=== PATIENT | female | born 1930 | race Caucasian/White ===

== ENCOUNTER 2016-10-11 16:49 | Emergency (ER) | payer OTHER ==
[~2016-10-11] VITALS: Ht 154.9 cm; Wt 50.8 kg
[~2016-10-11 16:49] MED LIST: ATEN100T OR; CALC-190 OR; GEMF600T3 OR
[2016-10-11 17:23] VITALS: BP 117/65
== END 2016-10-11 17:51 | disposition home or self-care (01) ==
LOC: ER 16:49 → EDUNIT# 16:49 → ER 17:51
DX: J20.9 Acute bronchitis, unspecified (principal)

== ENCOUNTER 2017-01-23 14:20 | Inpatient (IN) | payer OTHER ==
[~2017-01-23] VITALS: Ht 152.4 cm; Wt 51.0 kg
[2017-01-23 15:12] LABS: Basophils # (auto) 0 uL; Basophils % (auto) 0.3 % (0.0-2.0); CONDITION Y; Eosinophils # (auto) 0.1 uL; Eosinophils % (auto) 0.7 % (0.0-7.0); Hematocrit 35.4 % (36.0-46.0); Hemoglobin 11.9 g/dL (12.2-16.2); Lymphocytes # (auto) 0.9 uL; Lymphocytes % (auto) 11.3 % (10.0-50.0); Mean Corpuscular Hemoglobin 32.6 pg (28.0-32.0); Mean Corpuscular Hgb Conc. 33.6 g/dL (32.0-36.0); Mean Corpuscular Volume 96.9 fL (80.0-100.0); Mean Platelet Volume 7.7 fL (7.4-10.4); Monocytes # (auto) 0.5 uL; Monocytes % (auto) 6.7 % (0.0-12.0); Neutrophils # (auto) 6.7 uL; Platelet Count (auto) 303 10^3/uL (140-450); Red Cell Distribution Width 14.1 % (11.6-16.0); White Blood Cell 8.2 10^3/uL (4.4-10.8)
[2017-01-23 15:29] LABS: Albumin 3.8 g/dL (3.4-5.0); BUN/Creatinine Ratio 29.6; Calcium 9.5 mg/dL (8.5-10.1); Magnesium 2.7 mg/dL (1.6-2.6)
[2017-01-23 15:45] LABS: Bilirubin, Total 0.4 mg/dL (0.2-1.0); Total Protein 7.9 g/dL (6.4-8.2)
[2017-01-23] MEDS ORDERED: SODIUM CHLORIDE 0.9% 1,000 ML IVB ONE (18:12)
[2017-01-23 19:03] LABS: INR 0.99 (0.9-1.15); Partial Thromboplastin Time 26.1 sec (22.64-33.71); Prothrombin Time 10.8 sec (9.37-12.3)
[2017-01-23] MEDS ORDERED: MORPHINE SULF INJ 2 MG/ML SYRINGE 1ML IV PRN (19:45)
[2017-01-23] MEDS ORDERED: NITROGLYCERIN 0.4 MG SL TAB SL PRN (19:45)
[2017-01-23] MEDS ORDERED: LACTULOSE 20Gm/30ML SOLN PO PRN (19:45)
[2017-01-23] MEDS ORDERED: LORazepam 0.5 MG TAB PO PRN (19:45)
[2017-01-23] MEDS ORDERED: PROMETHAZINE HCL 25 MG/ML 1ML IV PRN (19:45)
[2017-01-23] MEDS ORDERED: ACETAMINOPHEN 500 MG TAB PO PRN (19:45)
[2017-01-23] MEDS ORDERED: MORPHINE SULFATE 4 MG/ML SYRG IV PRN (19:45)
[2017-01-23] MEDS ORDERED: HYDROcodone-ACET 5/325MG TAB PO PRN (19:45)
[2017-01-23] MEDS ORDERED: TEMAZEPAM 15 MG CAP PO PRN (19:45)
[2017-01-23] MEDS ORDERED: ASPirin 81 mg TAB PO ONE (20:00)
[2017-01-23] MEDS: ENOXAPARIN SOD 30 MG/0.3 ML SYRINGE SC SCH (20:08)
[2017-01-23] MEDS: SODIUM CHLORIDE 0.9% 1,000 ML IV SCH (20:10)
[2017-01-23 21:30] VITALS: BP 148/61
[2017-01-23] MEDS: ATORVASTATIN 20 MG TAB PO SCH ×2 (22:00→22:13)
[2017-01-24 01:42] VITALS: BP 148/67
[2017-01-24 02:51] LABS: Urine Bilirubin Negative (Negative); Urine Blood Negative /uL (Negative); Urine Color Yellow (Yellow); Urine Glucose Normal (Normal); Urine Ketone Negative (Negative); Urine Nitrite Negative (Negative); Urine RBC 2 /hpf (0 - 4); Urine Squamous Epithelial Cell FEW /hpf (<5); Urine Urobilinogen Normal (Negative); Urine pH 5.5 (5.0-8.0)
[2017-01-24 05:26] VITALS: BP 144/70
[2017-01-24 06:37] LABS: Potassium 3.4 mmol/L (3.5-5.1)
[2017-01-24 06:50] LABS: Bilirubin, Total 0.4 mg/dL (0.2-1.0); Calcium 8.6 mg/dL (8.5-10.1); Total Protein 6.2 g/dL (6.4-8.2)
[2017-01-24] MEDS: SODIUM CHLORIDE 0.9% 1,000 ML IV SCH ×2 (08:27→20:41)
[2017-01-24 09:27] VITALS: BP 152/80
[2017-01-24] MEDS ORDERED: POTASSIUM CHL 10 Meq TABLET PO ONE (09:30)
[2017-01-24] MEDS: ASPirin 81 mg TAB PO SCH (10:16)
[2017-01-24 11:02] LABS: Temperature: 23.3 C (20.0-25.0)
[2017-01-24] MEDS: BOOST PLUS 8 ounce PO SCH ×2 (11:07→16:58)
[2017-01-24] MEDS: NITROFURANTOIN (MONO) 100 mg CAP PO SCH ×2 (11:07→21:56)
[2017-01-24] MEDS: MECLIZINE HCL 25 MG TAB PO SCH ×3 (11:07→21:56)
[2017-01-24 13:00] VITALS: BP 148/71
[2017-01-24 17:01] VITALS: BP 148/80
[2017-01-24] MEDS: ENOXAPARIN SOD 30 MG/0.3 ML SYRINGE SC SCH (20:22)
[2017-01-24] MEDS: ATORVASTATIN 20 MG TAB PO SCH ×2 (21:57→22:00)
[2017-01-25] MEDS: MECLIZINE HCL 25 MG TAB PO SCH ×3 (05:57→22:14)
[2017-01-25 05:58] LABS: Basophils # (auto) 0 uL; Basophils % (auto) 0.7 % (0.0-2.0); CONDITION Y; Eosinophils # (auto) 0.2 uL; Eosinophils % (auto) 3.8 % (0.0-7.0); Hemoglobin 11.1 g/dL (12.2-16.2); Lymphocytes # (auto) 1.9 uL; Lymphocytes % (auto) 33.3 % (10.0-50.0); Mean Corpuscular Hemoglobin 32.6 pg (28.0-32.0); Mean Corpuscular Hgb Conc. 33.7 g/dL (32.0-36.0); Mean Corpuscular Volume 96.9 fL (80.0-100.0); Mean Platelet Volume 8.1 fL (7.4-10.4); Monocytes # (auto) 0.6 uL; Monocytes % (auto) 10.9 % (0.0-12.0); Neutrophils # (auto) 2.9 uL; Neutrophils % (auto) 51.3 % (37.0-80.0); Platelet Count (auto) 251 10^3/uL (140-450); Red Cell Distribution Width 13.8 % (11.6-16.0); White Blood Cell 5.6 10^3/uL (4.4-10.8)
[2017-01-25] MEDS: SODIUM CHLORIDE 0.9% 1,000 ML IV SCH ×2 (06:01→22:15)
[2017-01-25 06:13] LABS: Potassium 3.5 mmol/L (3.5-5.1)
[2017-01-25 06:26] LABS: Albumin 3.1 g/dL (3.4-5.0); BUN/Creatinine Ratio 29.6; Calcium 8.8 mg/dL (8.5-10.1); Magnesium 2.3 mg/dL (1.6-2.6)
[2017-01-25 06:32] LABS: Bilirubin, Total 0.5 mg/dL (0.2-1.0); Phosphorus 2.7 mg/dL (2.5-4.90); Total Protein 6.4 g/dL (6.4-8.2)
[2017-01-25] MEDS: BOOST PLUS 8 ounce PO SCH ×3 (08:00→18:06)
[2017-01-25 08:40] VITALS: BP 144/70
[2017-01-25] MEDS: NITROFURANTOIN (MONO) 100 mg CAP PO SCH ×2 (11:03→22:14)
[2017-01-25] MEDS: ASPirin 81 mg TAB PO SCH (11:03)
[2017-01-25 12:50] VITALS: BP 159/73
[2017-01-25 13:01] LABS: Uric Acid 7.8 mg/dL (2.6-6.0)
[2017-01-25 15:43] LABS: Cholesterol 218 mg/dL (< 200)
[2017-01-25 16:11] LABS: HDL Cholesterol 38 mg/dL (40-59); LDL Cholesterol 155 mg/dL (< 100); Triglycerides 108 mg/dL (< 150)
[2017-01-25 16:31] VITALS: BP 141/83
[2017-01-25 22:07] VITALS: BP 147/78
[2017-01-25] MEDS: ENOXAPARIN SOD 30 MG/0.3 ML SYRINGE SC SCH (22:14)
[2017-01-25] MEDS: ATORVASTATIN 20 MG TAB PO SCH (22:14)
[2017-01-26 05:27] VITALS: BP 155/69
[2017-01-26] MEDS: MECLIZINE HCL 25 MG TAB PO SCH ×2 (06:09→13:57)
[2017-01-26 08:50] VITALS: BP 135/66
[2017-01-26] MEDS: BOOST PLUS 8 ounce PO SCH (08:52)
[2017-01-26] MEDS: ASPirin 81 mg TAB PO SCH (08:53)
[2017-01-26] MEDS: NITROFURANTOIN (MONO) 100 mg CAP PO SCH (08:53)
[2017-01-26 10:32] VITALS: BP 135/66
[2017-01-26 13:09] VITALS: BP 173/79
[2017-01-26 14:01] VITALS: BP 145/65
== END 2017-01-26 14:50 | disposition home or self-care (01) | DRG 683 ==
LOC: ER 14:20 → TELE 14:21 → EDUNIT# 14:21 → TELE-WESTW 21:30
PROVIDERS: ADMIT Internal Medicine; ATTEND Internal Medicine
DX: N17.9 Acute kidney failure, unspecified (principal); G45.9 Transient cerebral ischemic attack, unspecified; E87.0 Hyperosmolality and hypernatremia; E44.0 Moderate protein-calorie malnutrition; N39.0 Urinary tract infection, site not specified; H83.09 Labyrinthitis, unspecified ear; G62.9 Polyneuropathy, unspecified; I12.9 Hypertensive chronic kidney disease with stage 1 through stage 4 chronic kidney disease, or unspecified chronic kidney disease; D64.9 Anemia, unspecified; E78.5 Hyperlipidemia, unspecified; N18.3 Chronic kidney disease, stage 3 (moderate); Z66 Do not resuscitate; Z51.5 Encounter for palliative care; Z53.20 Procedure and treatment not carried out because of patient's decision for unspecified reasons; K59.00 Constipation, unspecified; F41.9 Anxiety disorder, unspecified; G47.00 Insomnia, unspecified; D63.8 Anemia in other chronic diseases classified elsewhere; E87.6 Hypokalemia; Z68.22 Body mass index [BMI] 22.0-22.9, adult
CPT/HCPCS: 36415; 70450; 71010; 76775; 80053; 80061; 81001; 82306; 82550; 82607; 82746; 82962; 83735; 83970; 84100; 84443; 84484; 84550; 85025; 85610; 85652; 85730; 87086; 92610; 93005; 93306; 93886; 94761; 96360; 97116; 97530

== ENCOUNTER → 2017-03-28 | Outpatient (CLI) | payer OTHER | END | disposition home or self-care (01) | LOC: LAB 15:04 | DX: Z12.11 Encounter for screening for malignant neoplasm of colon (principal); I12.9 Hypertensive chronic kidney disease with stage 1 through stage 4 chronic kidney disease, or unspecified chronic kidney disease; N18.3 Chronic kidney disease, stage 3 (moderate); E75.5 Other lipid storage disorders | CPT/HCPCS: 82270 ==

== ENCOUNTER → 2017-06-24 | Outpatient (CLI) | payer OTHER ==
[2017-06-24 08:27] LABS: BUN/Creatinine Ratio 38.7; Calcium 9.6 mg/dL (8.5-10.1); Potassium 4.1 mmol/L (3.5-5.1)
[2017-06-24 08:30] LABS: Bilirubin, Total 0.4 mg/dL (0.2-1.0); Total Protein 8.5 g/dL (6.4-8.2)
== END | disposition home or self-care (01) ==
LOC: LAB 07:25
PROVIDERS: ATTEND Internal Medicine
DX: I12.9 Hypertensive chronic kidney disease with stage 1 through stage 4 chronic kidney disease, or unspecified chronic kidney disease (principal); N18.3 Chronic kidney disease, stage 3 (moderate)
CPT/HCPCS: 36415; 80053; 84439; 84443

== ENCOUNTER → 2017-07-25 | Outpatient (CLI) | payer OTHER | END | disposition home or self-care (01) | LOC: LAB 07:53 | PROVIDERS: ATTEND Internal Medicine | DX: Z01.89 Encounter for other specified special examinations (principal); I10 Essential (primary) hypertension | CPT/HCPCS: 36415; 84439; 84443 ==

== ENCOUNTER 2019-07-05 13:30 | Emergency (ER) | payer OTHER ==
[~2019-07-05] VITALS: Ht 154.9 cm; Wt 53.5 kg
[~2019-07-05 13:30] MED LIST changes: -GEMF600T3 OR; +GEMF600T7 OR
[2019-07-05 14:38] VITALS: BP 164/82
[2019-07-05] MEDS ORDERED: ACETAMINOPHEN 325 MG TAB PO ONE (15:45)
== END 2019-07-05 16:06 | disposition home or self-care (01) ==
LOC: ER 13:30
DX: S50.12XA Contusion of left forearm, initial encounter (principal); I10 Essential (primary) hypertension; E78.5 Hyperlipidemia, unspecified; W22.8XXA Striking against or struck by other objects, initial encounter; Y93.B9 Activity, other involving muscle strengthening exercises; Y92.89 Other specified places as the place of occurrence of the external cause; Y99.8 Other external cause status